=== PATIENT | male | born 1940 | race Caucasian/White ===

== ENCOUNTER 2016-10-09 10:28 | Emergency (ER) | payer MEDICARE, BC ==
--- NOTE | 2016-10-09 11:43 | ERNOTE ---
Medical Problem HPI - Narrative Date of Service: 10/09/16 - General Chief Complaint: General Assessment Time Seen by Provider: 10/09/16 11:24 Source: patient, RN notes reviewed Exam Limitations: no limitations - Immun/Allergies/Home Medications Immunizations: IMMUNIZATION HX Immunizations Up to Date No History of Influenza Vaccine No Allergies/Adverse Reactions: Allergies Tetanus Vaccines and Toxoid Allergy (Severe, Verified 10/09/16 10:51) Home Medications: HOME MEDICATIONS Aspirin [Aspirin EC] 81 mg PO DAILY 10/09/16 [Last Taken Unknown] NK [No Home Medication] 10/09/16 [Last Taken Unknown] - History of Present History Narrative: 76 y/o male to the ED by private vehicle for malaise. He states that he felt fine yesterday and did a full day's work, but woke up feeling unwell today. He has no specific complaints of pain or other associated symptoms. He does not take any routine medications and has no chronic medical conditions. He lives at home with his , who is currently out of town. Date (Duration): 10/09/16 Review of Systems - Review of Systems Constitutional: Present: fatigue, malaise. Absent: recent illness, fever, chills EYE: Absent: blurred vision, vision changes ENT: Absent: ear pain, nose congestion, sore throat Respiratory: Absent: shortness of breath, cough Cardiology: Absent: chest pain, palpitations, edema Gastrointestinal/Abdominal: Absent: nausea, vomiting, diarrhea, constipation, abdominal pain, eating less, drinking less Genitourinary: Absent: dysuria, hematuria Musculoskeletal: Absent: muscle pain, joint pain Skin: Absent: rash, lesions Neurological: Absent: headache, dizziness/light-headedness, weakness, numbness, tingling Endocrine: Present: no symptoms reported Hematologic/Lymphatic: Present: no symptoms reported Psych: Absent: anxiety, depressed, emotional problems - Patient's Past Medical History Patient History - Medical: No pertinent hx Patient History - Cardiac/Respiratory: No pertinent hx Patient History - Cancer: No Hx of Cancer Patient History - Other: None - Social History Living Situations: spouse Psych History: No pertinent hx Smoking Status: Never smoker Alcohol Use: none Drug Use: none - Immunizations Immunizations Up to Date: No History of Influenza Vaccine: No Physical Exam - Physical Exam General Appearance: Present: alert, no apparent distress, thin, other - clean, appropriately dressed and groomed Eye Exam: Normal inspection: bilateral, PERRL: bilateral, EOMI: bilateral Ears, Nose, Throat: Present: normal ENT inspection Neck: Present: normal inspection, nontender, supple Respiratory: Present: no respiratory distress, normal breath sounds, no accessory muscle use, lungs clear Cardiovascular/Chest: Present: regular rate, rhythm, no murmur, normal peripheral pulses Gastrointestinal/Abdominal: Present: normal bowel sounds, nontender, nondistended, soft Back Exam: Present: normal inspection, no CVA tenderness Extremity Exam: Present: normal inspection, non-tender, normal range of motion, no edema Neurological Exam: Present: alert, oriented, normal mood/affect, no motor/ sensory deficits Skin Exam: Present: normal color, warm/dry ED Progress - Results and Orders Patient's Lab Results:: I have reviewed the patient's lab results. - Vital Signs Patient's Vital Signs:: I have reviewed the patient's vital signs. Vital Signs: Vital Signs 10/09/16 10/09/16 10:45 11:22 Temperature 36.4 C L Pulse Rate 55 L 65 Respiratory 18 Rate Blood Pressure 141/86 O2 Sat by Pulse 96 Oximetry - EKG EKG: other - SBrady with sinus arrhythmia, no previous EKG read: Reviewed by me - Progress/Reassessment Chief Complaint: General Assessment Progress:: Unchanged Departure - Departure Clinical Impression: Malaise, Viral syndrome Disposition: Home Follow Up Needed Condition: Stable Instructions: Fatigue Additional Instructions: Rest Increase fluid intake Follow up with your doctor if no improvement in 2 to 3 days, or before if symptoms worsen
[2016-10-09 11:49] LABS: Hemoglobin 14.1 gm/dL (13.5-18.0); Mean Cell Volume 89.2 fl (78-100); Mean Corpuscular Hemoglobin 29.9 pg (27-31); Mean Corpuscular Hgb Conc 33.6 g/dl (32-36); Mean Platelet Volume 9.5 fl (6.0-9.5); Neutrophil # 2.8 K/mm3 (1.3-6.0); Neutrophil % 75.5 % (42-75.0); Platelet Count 227 K/mm3 (150-450); Red Blood Count 4.71 M/mm3 (4.7-6.0); Red Cell Distribution Width 13.7 % (11.5-14.0); White Blood Count 3.8 K/mm3 (4.0-10.5)
[2016-10-09 12:03] LABS: Urine Bilirubin Negative (NEGATIVE); Urine Blood Negative /ul (NEGATIVE); Urine Ketone Negative (NEGATIVE); Urine Nitrite Negative (NEGATIVE); Urine Protein Negative (NEGATIVE); Urine Specific Gravity 1.015 SP.GR. (1.005-1.030); Urine Urobilinogen Normal (NORMAL); Urine pH 5.5 pH (5.0-7.0)
[2016-10-09 12:05] LABS: ALT 29 U/L (19-67); AST 29 U/L (0-48); Albumin * 3.6 gm/dl (3.4-5.0); Alkaline Phosphatase * 76 U/L (50-170); Anion Gap 12.2 mmol/L (6.8-13.8); BUN/Creatinine Ratio 15.5 (9.0-21.6); Bilirubin, Total 0.6 mg/dL (0.0-1.1); Blood Urea Nitrogen 16 mg/dL (6-23); Ca. Corrected For Albumin 8.6 mg/dL (8.4-10.2); Calcium * 8.6 mg/dL (7.9-10.9); Carbon Dioxide 26.7 mmol/L (24-32.6); Chloride 107 mmol/L (97-106); Glucose * 90 mg/dL (70-110); Potassium 3.9 mmol/L (3.4-4.6); Sodium 142 mmol/L (132-142)
[2016-10-09 12:08] LABS: Troponin I Less than 0.017 ng/ml (0.00-0.10)
--- OUTSIDE RECORDS SUMMARY | 2016-10-09 12:10 | XMS REPORT | Continuity of Care Document ---
:1940 Author Organization [facility] ([facility]) Address [address] [place] [address] Phone [phone] Care Team Providers Name Role Phone Nick Morley Primary Care Provider [phone] Source Comments This disclosure is being made pursuant to the Care Everywhere program, applicable federal and state laws, and may not contain all informaitonavailable regarding this patient.[facility] ([facility]) Active Allergies and Adverse Reactions Allergen Noted Date Severity Reactions Comments Tetanus And Diphtheria Toxoids, Adsorbed, 09/29/2012 Angioedema Adult Current Medications Prescription Sig. Disp. Refills Start Date End Date Status oxybutynin 5 mg Take 1 Tab by mouth 30 Tab 11 09/29/2012 Active tablet daily. Indications: BLADDER HYPERACTIVITY fluocinoNIDE 0.05 % apply topically 2 30 g 2 11/10/2012 Active topical ointment times daily. Indications: CONTACT DERMATITIS nitroglycerin 0.[address] 1 tablet (0.4 25 tablet 11 08/22/2015 Active SL tablet mg total) under the tongue every 5 minutes as needed Maximum of 3 tablets in 15 minutes. Active Problems Not on file Social History Tobacco Use Types Packs/Day Years Used Date Never Assessed Last Filed Vital Signs Vital Sign Reading Time Taken Blood Pressure 129/76 08/23/2015 2:29 PM PROPERTY ADMINISTRATOR Pulse 56 08/23/2015 2:29 PM PROPERTY ADMINISTRATOR Temperature 36.4 C (97.5 F) 08/23/2015 2:29 PM PROPERTY ADMINISTRATOR Respiratory Rate 16 08/23/2015 2:29 PM PROPERTY ADMINISTRATOR Height - - Weight 77.202 kg (170 lb 3.2 oz) 08/23/2015 2:29 PM PROPERTY ADMINISTRATOR Body Mass Index - - Oxygen Saturation 96% 08/22/2015 2:32 PM PROPERTY ADMINISTRATOR Plan of Care Health Maintenance Due Date Last Done Comments Hepatitis B Vaccine (1 of 3 - Primary Series) 1940 Lipid Disorder Screening 1957 Colonoscopy 09/01/1989 Zoster Vaccine 1999 Pneumococcal Vaccine (1 of 2 - PCV13) 2004 Influenza Vaccine: Seasonal (#1) 02/05/2016 Results from Last 3 Months Not on file
[2016-10-09 12:11] LABS: Urine Appearance Clear; Urine Bacteria None Seen; Urine Color Yellow; Urine RBC None Seen /hpf (0-5); Urine WBC None Seen /hpf (0-5)
[2016-10-09 12:48] VITALS: BP 133/77
== END 2016-10-09 12:49 | disposition home or self-care (01) ==
LOC: ER 10:28
DX: R53.81 Other malaise (principal); B34.9 Viral infection, unspecified